=== PATIENT | female | born 1940 | race Caucasian/White ===

== ENCOUNTER → 2017-07-12 | Outpatient (CLI) | payer MEDICARE, OTHER ==
[~2017-07-12] MED LIST: ALDACTONE 25MG25 MG PO; CIPRO 250MG TA250 MG PO; CITALOPRAM20 MG PO; METFORMIN500 MG PO; MULTIVITAMIN1 TA1 PO; PRAVACHOL 40MG40 MG PO; WARFARIN SODIU7.5 MG PO; ZYRTEC 10MG TAB10 MG PO
== END ==
LOC: LAB 12:30
DX: E03.9 Hypothyroidism, unspecified (principal)